=== PATIENT | male | born 1970 | race Two or more races ===

== ENCOUNTER 2016-09-08 23:10 | Emergency (ER) | payer MEDICAID ==
[~2016-09-08] VITALS: Ht 170.2 cm; Wt 72.6 kg
[2016-09-08 23:48] VITALS: BP 146/79
== END 2016-09-09 00:03 | disposition left against medical advice (07) ==
LOC: ER 23:10
DX: Z53.21 Procedure and treatment not carried out due to patient leaving prior to being seen by health care provider (principal)
CPT/HCPCS: A4606; Z7610

== ENCOUNTER 2016-09-09 02:24 | Emergency (ER) | payer MEDICAID ==
[~2016-09-09] VITALS: Ht 170.2 cm; Wt 95.3 kg
--- NOTE | 2016-09-09 03:50 | NUR ---
TO BED 6 A 46 YO MALE BIBFAMILY AND REPORTED "BLEEDING GUMS; HAD GUM SURGERY WEDNESDAY AND THE BLEEDING HAS NOT STOP, FOR ALMOST A DAY NOW." PER PATIENT, HE CALLED HIS DENTIST AND WAS ADVISED TO GO TO ER. VSS. INITIATED COMFORT MEASURES. KEPT HOB ELEVATED. GOWNED. AWAITING FOR ER MD BURGESS.
--- NOTE | 2016-09-09 04:34 | NUR ---
DR HENDERSON AT BEDSIDE.
[2016-09-09] MEDS ORDERED: GELATIN SPONGE,ABSORBABLE 1 SPONGE SPONGE TP ONE (04:53)
[2016-09-09] MEDS ORDERED: LIDOCAINE 0.5%-EPI 1:200,000 50 ML VIAL ONE (05:13)
--- NOTE | 2016-09-09 05:25 | NUR ---
PLACED PACKING SOAKED WITH LIDOCAINE WITH EPI ON THE AFFECTED LEFT UPPER GUMS. COLD COMPRESS ALSO APPLIED.
[2016-09-09] MEDS ORDERED: ACETAMINOPHEN ES 500 MG TABLET ONE (06:28)
--- NOTE | 2016-09-09 06:30 | NUR ---
tylenol 1000mg given po one time per Dr Stahl's verbal order.
--- NOTE | 2016-09-09 06:33 | NUR ---
Noted that bleeding stopped. vss. Patient discharged to home in stable condition. Written and verbal after care instructions given. Patient verbalizes understanding of instruction. Patient is ambulatory with a steady gait, accompanied by family. No further complaints.
[2016-09-09 06:35] VITALS: BP 130/78
[2016-09-09] MEDS ORDERED: ACETAMINOPHEN 325 MG TABLET PO ONE (07:00)
== END 2016-09-09 06:36 | disposition home or self-care (01) ==
LOC: ER 02:24
DX: K06.8 Other specified disorders of gingiva and edentulous alveolar ridge (principal)
CPT/HCPCS: 99283; A4606; A6402; J3490; Z7610